=== PATIENT | female | born 1960 | race Two or more races ===

== ENCOUNTER 2018-02-22 05:43 | Day surgery (SDC) | payer BC ==
[2018-02-22] MEDS ORDERED: ANESTHESIA TRAY IN PYXIS 1 EA TRAY MC ONE (06:26)
[2018-02-22] MEDS ORDERED: methylPREDNISolone ACETATE 40 MG/ML VIAL ONE (07:13)
[2018-02-22] MEDS ORDERED: methylPREDNISolone ACETATE 80 MG/ML VIAL ONE (07:13)
[2018-02-22] MEDS ORDERED: LIDOCAINE HCL/PF 1% 30 ML SDV ONE (07:16)
[2018-02-22] MEDS ORDERED: HYDROCODONE/APAP 10/325MG 1 EA TABLET PO PRN ×2 (07:30)
[2018-02-22] MEDS ORDERED: FENTANYL PF 100MCG/2ML AMPUL ONE (07:37)
[2018-02-22] MEDS ORDERED: HYDROCODONE/APAP 10/325MG 1 EA TABLET ONE (08:50)
== END 2018-02-22 09:20 | disposition home or self-care (01) ==
LOC: DS 05:43
PROVIDERS: ATTEND Specialist
DX: S83.232A Complex tear of medial meniscus, current injury, left knee, initial encounter (principal); S83.282A Other tear of lateral meniscus, current injury, left knee, initial encounter; M94.262 Chondromalacia, left knee; X58.XXXA Exposure to other specified factors, initial encounter; Y93.89 Activity, other specified; Y92.89 Other specified places as the place of occurrence of the external cause; Y99.8 Other external cause status; Z98.890 Other specified postprocedural states; Z80.8 Family history of malignant neoplasm of other organs or systems; Z90.710 Acquired absence of both cervix and uterus; Z83.3 Family history of diabetes mellitus
CPT/HCPCS: 29880; 88304; 88311; A4217; A6253 ×2; J1040; J3010; J3490; J1030